=== PATIENT | male | born 1950 | race Caucasian/White ===

== ENCOUNTER 2022-02-09 18:03 | Emergency (ER) | payer MEDICARE, BC ==
[~2022-02-09] VITALS: Ht 177.8 cm; Wt 86.2 kg
[~2022-02-09 18:03] MED LIST: HYDR1TAB PO; IBUP200C5 PO
--- NOTE | 2022-02-09 18:18 | NUR ---
CAME IN FOR COUGH/SOB X 10 DAYS, R SIDED R AREA PAIN X 2 DAYS. TO ER BED 12, HOOKED TO MONITOR, CHANGED TO HOSP GOWN, WARM BLANKET PROVIDED. AWAITING MD MONTALVO
--- NOTE | 2022-02-09 18:40 | NUR ---
DR PETERSON AT BEDSIDE
[2022-02-09 20:07] LABS: BASOPHILS % (AUTO) 0.1 % (0.0-2.0); EOSINOPHILS % (AUTO) 0.2 % (0.0-6.0); HEMATOCRIT 41 % (39-51); HEMOGLOBIN 13.5 g/dL (13.5-17.5); LYMPHOCYTES # (AUTO) 1.1 K/uL (0.8-4.8); MEAN CORPUSCULAR HGB CONC 33 g/dl (31.0-36.0); MEAN CORPUSCULAR VOLUME 91 fL (80-96); MONOCYTES # (AUTO) 1.8 K/uL (0.1-1.30); MONOCYTES % (AUTO) 8.6 % (2.0-12.0); NEUTROPHILS % (AUTO) 86.1 % (43.0-81.0); PLATELET COUNT (AUTO) 574 K/uL (150-450); RED BLOOD CELL COUNT(AUTO) 4.46 MIL/uL (4.5-6.0); WHITE BLOOD COUNT (AUTO) 20.9 K/uL (4.3-11.0)
[2022-02-09 20:08] LABS: CALCIUM, SERUM 9.4 mg/dL (8.5-10.1); CARBON DIOXIDE 28 mmol/L (21-32); CHLORIDE 97 mmol/L (98-107); CREATININE 1.3 mg/dL (0.6-1.3); GLUCOSE 96 mg/dL (74-106); POTASSIUM 4.1 mmol/L (3.5-5.1); SODIUM SERUM 132 mmol/L (136-145); UREA NITROGEN, BLOOD 22 mg/dL (7-18)
--- NOTE | 2022-02-09 20:37 | NUR ---
Patient eloped from facility. ER MD notified.
[2022-02-09 20:42] VITALS: BP 121/90
[2022-02-09] MEDS ORDERED: HYDROCODONE/APAP 5/325MG TABLET PO ONE (21:00)
[2022-02-09] MEDS ORDERED: LEVO500T90 PO (21:53)
[2022-02-09] MEDS ORDERED: HYDR-4303 PO (21:53)
== END 2022-02-09 20:54 | disposition left against medical advice (07) ==
LOC: ER 18:13
DX: R07.89 Other chest pain (principal); I10 Essential (primary) hypertension; Z87.442 Personal history of urinary calculi; Z79.899 Other long term (current) drug therapy
CPT/HCPCS: 36415; 71045-TC; 80048-TC; 84484-TC; 85025-TC

== ENCOUNTER 2022-03-18 18:25 | Inpatient (IN) | payer MEDICARE, BC ==
[~2022-03-18] VITALS: Ht 175.3 cm; Wt 78.5 kg
[~2022-03-18 18:25] MED LIST changes: +HYDR-4303 PO; +LEVO500T90 PO
--- NOTE | 2022-03-18 20:27 | NUR ---
BIBSELF C/O COUGH, FATIGUE, BODY ACHES FOR THE PAST FEW WEEKS. HX PNA. PT A/OX4. TOLERATING R/A AT 98% WITH NO RESP DISTRESS. AMB WITH STEADY GAIT. CONNECTED PT TO POX AND MONITOR. SAFETY MEASURES IN PLACE.
--- NOTE | 2022-03-18 20:45 | NUR ---
DIRECTOR OF FIELD SALES AT PT'S BEDSIDE
--- NOTE | 2022-03-18 20:55 | NUR ---
LAC #18G S/L BLOOD AND COVID ANTIGEN SWAB COLLECTED
[2022-03-18 21:02] LABS: BASOPHILS # (AUTO) 0.1 K/uL (0.0-0.2); BASOPHILS % (AUTO) 0.3 % (0.0-2.0); EOSINOPHILS % (AUTO) 0.6 % (0.0-6.0); HEMATOCRIT 35 % (39-51); HEMOGLOBIN 11.1 g/dL (13.5-17.5); LYMPHOCYTES # (AUTO) 1.8 K/uL (0.8-4.8); LYMPHOCYTES % (AUTO) 7.5 % (20.0-44.0); MEAN CORPUSCULAR HGB CONC 32 g/dl (31.0-36.0); MEAN CORPUSCULAR VOLUME 88 fL (80-96); MONOCYTES # (AUTO) 2.1 K/uL (0.1-1.30); MONOCYTES % (AUTO) 8.9 % (2.0-12.0); NEUTROPHILS # (AUTO) 19.9 K/uL (1.8-8.9); NEUTROPHILS % (AUTO) 82.7 % (43.0-81.0); PLATELET COUNT (AUTO) 550 K/uL (150-450); RED BLOOD CELL COUNT(AUTO) 3.93 MIL/uL (4.5-6.0)
[2022-03-18 21:10] LABS: CALCIUM, SERUM 9.3 mg/dL (8.5-10.1); CREATININE 1.3 mg/dL (0.6-1.3); POTASSIUM 3.8 mmol/L (3.5-5.1)
[2022-03-18] MEDS ORDERED: CEFTRIAXONE 1GM BAG (ER ONLY) 50 ML IV ONE ×2 (21:30→21:53)
[2022-03-18] MEDS ORDERED: AZITHROMYCIN 500 MG in IV D5W 250 ML IV ONE (21:30)
[2022-03-18] MEDS ORDERED: IV NS 0.9% 1,000 ML BAG IV ONE (21:30)
--- NOTE | 2022-03-18 21:30 | NUR ---
PHLEBOTMIST AT PT'S BEDSIDE
--- NOTE | 2022-03-18 22:23 | NUR ---
RICARDO HOWARD AT BEDSIDE
[2022-03-18] MEDS ORDERED: IV NS 0.9% 1,000 ML IV PRN (22:30)
[2022-03-18] MEDS ORDERED: Z GUARD REMEDY 4 OZ OINT TP PRN (22:30)
[2022-03-18] MEDS ORDERED: MAGNESIUM HYDROXIDE 30 ML UDC PO PRN (22:30)
[2022-03-18] MEDS ORDERED: ONDANSETRON HCL/PF 4 MG/2 ML VIAL IVP PRN (22:30)
[2022-03-18] MEDS ORDERED: IPRATROPIUM NEB FS 0.5 MG/2.5 ML AMPUL.NEB NEB PRN (22:30)
[2022-03-18] MEDS ORDERED: ACETAMINOPHEN 325 MG TABLET PO PRN (22:30)
[2022-03-18] MEDS ORDERED: ALBUTEROL FS 2.5 MG/3 ML VIAL.NEB NEB PRN (22:30)
[2022-03-18] MEDS ORDERED: GUAIFENESIN/CODEINE 10 ML UDC PO PRN (22:30)
[2022-03-18] MEDS ORDERED: MORPHINE SULFATE INJ 2 MG/ML DISP.SYRIN IV PRN (22:30)
[2022-03-18] MEDS ORDERED: HYDROCODONE/APAP 5/325MG TABLET PO PRN (22:30)
[2022-03-18] MEDS ORDERED: TEMAZEPAM 15 MG CAPSULE PO PRN (22:30)
[2022-03-18] MEDS ORDERED: MAG HYDROX/AL HYDROX/SIMETH 30 ML UDC PO PRN (22:30)
[2022-03-18] MEDS ORDERED: AZITHROMYCIN 500 MG VIAL ONE (22:45)
--- NOTE | 2022-03-19 02:30 | NUR ---
REPORT GIVEN TO ANDREAS BECKETT FOR CAROLYN
--- NOTE | 2022-03-19 02:56 | NUR ---
ANDREAS RECEABIEL NOTE PATIENT RECEIVED FROM ER. PATIENT WAS ABLE TO AMBULATE TO HIS BED. A/OX4. NO S/S OF DISTRESS, BREATHING WITHOUT DIFFICULTY ON ROOM AIR. LAC #18 SL INTACT AND PATENT. SAFETY MEASURES IN PLACE: BED LOCKED AND AT LOWEST POSITION, RAILS UP X2. CALL STOCK GIVEN TO PATIENT AND INSTRUCTED ON ITS USE. PATIENT WAS ORIENTED TO THE UNIT. BELONGINGS ACCOUNTED FOR, LOGGED INTO SHEET, AND PLACED IN CHART. PATIENT IS STABLE WITH VS WNL. NO PAIN NOTED AT THIS TIME. Addendum: 03/19/22 at 0320 by CHAVEZ LITTLE RN WILL CONTINUE TO MONITOR PATIENT.
[2022-03-19 03:00] VITALS: BP 106/60
--- NOTE | 2022-03-19 03:00 | NUR ---
PT WAS TRANSPORTED TO UNIT ON [place] WITH EMT AT BEDSIDE ON STABLE CONDITION.
[2022-03-19 03:41] VITALS: BP 106/60
[2022-03-19 06:09] LABS: BASOPHILS % (AUTO) 0.2 % (0.0-2.0); EOSINOPHILS % (AUTO) 0.2 % (0.0-6.0); HEMATOCRIT 30 % (39-51); HEMOGLOBIN 9.6 g/dL (13.5-17.5); LYMPHOCYTES # (AUTO) 1.8 K/uL (0.8-4.8); LYMPHOCYTES % (AUTO) 7.7 % (20.0-44.0); MEAN CORPUSCULAR HGB CONC 33 g/dl (31.0-36.0); MEAN CORPUSCULAR VOLUME 87 fL (80-96); MONOCYTES # (AUTO) 1.9 K/uL (0.1-1.30); MONOCYTES % (AUTO) 8.3 % (2.0-12.0); NEUTROPHILS # (AUTO) 19.1 K/uL (1.8-8.9); NEUTROPHILS % (AUTO) 83.6 % (43.0-81.0); PLATELET COUNT (AUTO) 452 K/uL (150-450); RED BLOOD CELL COUNT(AUTO) 3.39 MIL/uL (4.5-6.0); WHITE BLOOD COUNT (AUTO) 22.9 K/uL (4.3-11.0)
--- NOTE | 2022-03-19 06:49 | NUR ---
RN CLOSING NOTE PATIENT AWAKE IN BED. A/OX4. NO S/S OF DISTRESS, BREATHING WITHOUT DIFFICULTY ON ROOM AIR. LAC #18 INTACT AND PATENT W/ NS 75ML/HR. SAFETY MEASURES IN PLACE: BHED LOCKED AND AT LOWEST POSITION, RAILS UP X2, CALL STOCK WITHIN REACH. WILL ENDORSE TO NEXT SHIFT FOR CAROLYN
[2022-03-19 07:01] LABS: CALCIUM, SERUM 8.3 mg/dL (8.5-10.1); CREATININE 1.2 mg/dL (0.6-1.3); MAGNESIUM 1.9 mg/dL (1.8-2.4); PHOSPHORUS 3.1 mg/dL (2.5-4.9); POTASSIUM 3.9 mmol/L (3.5-5.1)
--- NOTE | 2022-03-19 07:11 | NUR ---
MS RN OPENING NOTES RECEIVED PATIENT SLEEPING IN BED, ON ROOM AIR, NO S/S OF RESPIRATORY DISTRESS OR SOB. PATIENT IS VERBALLY RESPONSIVE A/Ox4. PATIENT HAS IV ACCESS LAC #18 G NS @75 ML/HR. INTACT AND PATENT, NO S/S OF INFILTRATION. PATIENT USES BATHROOM, AMBULATORY. SKIN IS INTACT. SAFETY MEASURES IN PLACE: BED LOCKED AND IN LOWEST POSITION, SIDE RAILS x2, BED ALARM ON, HOB ELEVATED, CALL LIGHT WITHIN REACH. WILL CONTINUE TO MONITOR.
[2022-03-19 07:15] LABS: THYROID STIMULATING HORMONE 0.827 uIU/mL (0.358-3.74)
[2022-03-19] MEDS: PANTOPRAZOLE 40 MG TABLET.DR PO SCH (07:30)
[2022-03-19 08:00] VITALS: BP 118/73
[2022-03-19] MEDS ORDERED: DIAZ5TAB4 PO (08:57)
--- NOTE | 2022-03-19 11:00 | NUR ---
RN NOTES PATIENT REQUESTED PRN TYLENOL, ADMINISTERED, WILL CONTINUE TO MONITOR.
[2022-03-19 16:00] VITALS: BP 113/67
--- NOTE | 2022-03-19 18:37 | NUR ---
MS RN CLOSING NOTES RECEIVED PATIENT WATCHING TV IN BED, STABLE ON ROOM AIR, NO S/S OF RESPIRATORY DISTRESS OR SOB. PATIENT IS VERBALLY RESPONSIVE A/Ox4. PATIENT HAS IV ACCESS LAC #18 G NS @75 ML/HR. INTACT AND PATENT, NO S/S OF INFILTRATION. PATIENT USES BATHROOM, AMBULATORY. SKIN IS INTACT. ALL PRESCRIBED MEDICATION ADMINISTERED. SAFETY MEASURES MAINTAINED: BED LOCKED AND IN LOWEST POSITION, SIDE RAILS x2, BED ALARM ON, HOB ELEVATED, CALL LIGHT WITHIN REACH. WILL ENDORSE TO NEXT SHIFT ANY CAROLYN.
--- NOTE | 2022-03-19 19:30 | NUR ---
MS RN OPENING NOTES RECEIVED PATIENT AWAKE IN BED WITH FAMILY AT BEDSIDE, ON ROOM AIR,TOLERATING WELL, NO S/S OF RESPIRATORY DISTRESS OR SOB. PATIENT IS VERBALLY RESPONSIVE A/Ox4. PATIENT HAS IV ACCESS LAC #18 G NS @75 ML/HR. INTACT AND PATENT, NO S/S OF INFILTRATION. PATIENT USES BATHROOM, AMBULATORY. SKIN IS INTACT. SAFETY MEASURES IN PLACE: BED LOCKED AND IN LOWEST POSITION, SIDE RAILS x2, BED ALARM ON, HOB ELEVATED, CALL LIGHT WITHIN REACH. WILL CONTINUE TO MONITOR.
[2022-03-19 20:00] VITALS: BP 138/72
[2022-03-19] MEDS ORDERED: AZITHROMYCIN 500 MG in IV D5W 250 ML IV SCH (22:00)
[2022-03-19] MEDS ORDERED: CEFTRIAXONE 1 G in IV D5W 50 ML IV SCH (22:00)
[2022-03-19] MEDS ORDERED: LIDOCAINE 5% (PATCH) 1 EA PATCH TP SCH (22:00)
--- NOTE | 2022-03-19 23:07 | NUR ---
RN NOTE PATIENT REFUSED TO HAVE IV CONNECTED. FLUIDS NOT CURRENTLY RUNNING.
--- NOTE | 2022-03-20 06:16 | NUR ---
RN NOTE PATIENT REFUSED LAB DRAW FOR CBC AND BMP
--- NOTE | 2022-03-20 07:06 | NUR ---
MS RN CLOSING NOTES PATIENT ASLEEP IN BED, ON ROOM AIR,TOLERATING WELL, NO S/S OF RESPIRATORY DISTRESS OR SOB. PATIENT IS VERBALLY RESPONSIVE A/Ox4. PATIENT HAS IV ACCESS LAC #18 G SUPPOSE TO HAVE (BUT REFUSED)NS @75 ML/HR. INTACT AND PATENT, ALL DUE MEDS GIVEN. PATIENT ABLE TO MAKE NEEDS KNOWN. SAFETY MEASURES IN PLACE: BED LOCKED AND IN LOWEST POSITION, SIDE RAILS x2, BED ALARM ON, HOB ELEVATED, CALL LIGHT WITHIN REACH. WILL ENDORSE TO MORNING NURSE FOR CONTINUOUS OF CARE. Beto
[2022-03-20] MEDS: PANTOPRAZOLE 40 MG TABLET.DR PO SCH (07:30)
--- NOTE | 2022-03-20 07:50 | NUR ---
MS RN OPENING NOTES PATIENT AWAKE IN BED, ON ROOM AIR,TOLERATING WELL, NO S/S OF RESPIRATORY DISTRESS OR SOB. PATIENT IS VERBALLY RESPONSIVE A/Ox4. PER LAST NIGHT'S NURSE PATIENT HAS IV ACCESS LAC #18 G, REFUSED TO BE ASSESSED. PT IS SUPPOSED TO HAVE NS @75 ML/HR BUT REFUSED. UNABLE TO CHECK IF INTACT AND PATENT DUE TO PATIENT REFUSAL. PATIENT ABLE TO MAKE NEEDS KNOWN, DEMANDS TO SPEAK TO A DOCTOR, ASKED ME TO LEAVE THE ROOM. ADVISED THAT MD WILL BE DOING ROUNDS LATER. PATIENT REFUSED MORNING MED OF PANTOPRAZOLE, ADVISED OF INDICATION BUT REFUSED. CHARGE NURSE MADE AWARE OF THE PATIENT'S BEHAVIOR AND NON-COMPLIANCE. WILL CONTINUE TO MONITOR.
--- NOTE | 2022-03-20 08:39 | NUR ---
RN NOTES PATIENT REQUESTED FOR HIS LAC IV TO BE REMOVED WHEN HE SPOKE TO CHARGE NURSE HOLGER. REMOVED IT, APPLIED DIGITAL PRESSURE FOR 5 MINUTES AND PUT GAUZE AND TAPE. CLEANED THE SITE. NO S/SX OF BLEEDING NOTED.
--- NOTE | 2022-03-20 08:58 | NUR ---
RN NOTES ROUTINE CBC WAS REFUSED BY PATIENT.
--- NOTE | 2022-03-20 09:55 | NUR ---
AMA NOTES PT IS AOX3-4, VERBALIZED THAT HE WANTS TO LEAVE THE HOSPITAL AMA AND WILL GO SEE HIS PCP. DR SHEREE SUMENR WAS WITH THE PATIENT EXPLAINING THE NEED FOR HOSPITALIZATION D/T ELEVATED WBC OF 22, REQUIRING THE NEED FOR ATB TX. EXPLAINED RISKS AND CONSEQUENCES OF LEAVING THE HOSPITAL, PATIENT VERBALIZED UNDERSTANDING AND PATIENT IS STILL ADAMANT ON LEAVING. PT REFUSED TO SIGN AMA FORM AND BELONGINGS LIST. WITNESSED AND CO-SIGNED BY CHARGE NURSE HOLGER. PATIENT HAS NO IV ACCESS, ALL BELONGINGS WERE TAKEN. PATIENT REFUSED TO HAVE THE NAME BAND BE REMOVED, HE TOOK THE EXIT STAIRS AND SECURITY NOTIFIED. PATIENT LEFT THE UNIT AROUND [id number]. AND CHARGE NURSE AILYN.
[2022-03-23 22:06] LABS: *MYCOPLASMA PNEUMONIAE IgG 149 U/mL (0-99); *MYCOPLASMA PNEUMONIAE IgM <770 U/mL (0-769)
== END 2022-03-20 09:55 | disposition still patient (30) | DRG 194 ==
LOC: ER 18:41 → TRANSITION 03-19 00:22 → MED 03-19 02:28
PROVIDERS: ADMIT Nurse Practitioner Acute Care; ATTEND Nurse Practitioner Acute Care
DX: J15.9 Unspecified bacterial pneumonia (principal); E87.1 Hypo-osmolality and hyponatremia; K44.9 Diaphragmatic hernia without obstruction or gangrene; E86.1 Hypovolemia; D75.839 Thrombocytosis, unspecified; D63.8 Anemia in other chronic diseases classified elsewhere; I10 Essential (primary) hypertension; Z87.442 Personal history of urinary calculi; R79.89 Other specified abnormal findings of blood chemistry; F17.200 Nicotine dependence, unspecified, uncomplicated
CPT/HCPCS: 36415; 70220-TC; 71045-TC; 71250-TC; 80048-TC; 83605-TC; 83735-TC; 84100-TC; 84443-TC; 84484-TC; 85025-TC; 85730-TC; 86713; 86738; 87040-TC; C9803; G0378; J0456; J0696; J2270; J2405; J7030; J7060